=== PATIENT | female | born 1980 | race Two or more races ===

== ENCOUNTER 2019-10-17 16:27 | Emergency (ER) | payer OTHER ==
[~2019-10-17] VITALS: Ht 157.5 cm; Wt 76.2 kg
[2019-10-17] MEDS ORDERED: GAVISCON LIQUI355 ML (16:39)
[2019-10-17] MEDS ORDERED: PREVACID30 MG (16:39)
== END 2019-10-17 22:52 | disposition home or self-care (01) ==
LOC: ER 16:27
DX: T50.994A Poisoning by other drugs, medicaments and biological substances, undetermined, initial encounter (principal); R10.13 Epigastric pain; R13.19 Other dysphagia; R13.13 Dysphagia, pharyngeal phase; Y92.89 Other specified places as the place of occurrence of the external cause